=== PATIENT | female | born 1965 | race Caucasian/White ===

== ENCOUNTER 2017-08-03 10:04 | Emergency (ER) | payer OTHER ==
--- NOTE | 2017-08-03 10:42 | ED Physician Chart ---
ED Chief Complaint/HPI - Patient Information Date Seen:: 08/03/17 Time Seen:: 10:37 Chief Complaint:: Weakness History of Present Illness:: 52 yo female had weakness and SOB for 1 week. She also had anxiety due to pending surgery for left ear basal cell carcinoma. She felt fever, loss of appetite and vomited once. Allergies:: Allergies Allergy/AdvReac Type Severity Reaction Status Date / Time No Known Allergies Allergy Verified 08/03/17 10:20 Vitals:: Vital Signs - 8 hr 08/03/17 10:21 Temp 99.0 F HR 93 RR 22 BP 139/89 O2 Sat % 100 ED Review of Systems - Review of Systems General/Constitutional: Fever Skin: Skin lesions Head: Light headed Eyes: No pain ENT: No nasal drainage Neck: No neck pain Cardio Vascular: No chest pain Pulmonary: SOB GI: Nausea, Vomiting, No diarrhea Musculoskeletal: No bone or joint pain Psychiatric: Anxiety Neurological: No focal symptoms ED Past Medical History - Past Medical History Past Medical History: Other (, basal cell carcinoma of left ear) Social History: Non Smoker, No Alcohol, No Drug Use Surgical History: Hysterectomy ED Physical Exam - Physical Examination General/Constitutional: Awake, Alert Head: Atraumatic Eyes: PERRL Other Skin comments:: Left ear basal cell carcinoma ENMT: Nasal exam nl Neck: No nuchal rigidity Respiratory: Clear to Auscultation Cardio Vascular: RRR, No murmur, gallop, rubs, NL S1 S2 GI: No tenderness/rebounding/guarding Extremities: normal strength in all extremities Neuro/Psych: No focal deficits ED Labs/Radiology/EKG Results - Lab Results Results: Laboratory Last Values WBC 7.1 Th/cmm (4.8-10.8) 08/03/17 11:04 RBC 4.79 Mil/cmm (3.80-5.10) 08/03/17 11:04 Hgb 14.6 gm/dL (12-16) 08/03/17 11:04 Hct 43.4 % (41.0-60) 08/03/17 11:04 MCV 90.7 fl (81-100) 08/03/17 11:04 MCH 30.6 pg (27.0-31.0) 08/03/17 11:04 MCHC Differential 33.7 pg (28.0-36.0) 08/03/17 11:04 RDW 12.2 % (11.5-20.0) 08/03/17 11:04 Plt Count 241 Th/cmm (150-400) 08/03/17 11:04 MPV 9.7 fl 08/03/17 11:04 Neutrophils % 63.1 % (40.0-80.0) 08/03/17 11:04 Lymphocytes % 28.7 % (20.0-50.0) 08/03/17 11:04 Monocytes % 5.9 % (2.0-10.0) 08/03/17 11:04 Eosinophils % 1.1 % (0.0-5.0) 08/03/17 11:04 Basophils % 1.2 % (0.0-2.0) 08/03/17 11:04 Sodium 137 mEq/L (136-145) 08/03/17 11:04 Potassium 4.1 mEq/L (3.5-5.1) 08/03/17 11:04 Chloride 103 mEq/L (98-107) 08/03/17 11:04 Carbon Dioxide 26.2 mEq/L (21.0-31.0) 08/03/17 11:04 Anion Gap 11.9 (7.0-16.0) 08/03/17 11:04 BUN 11 mg/dL (7-25) 08/03/17 11:04 Creatinine 0.6 mg/dL (0.6-1.2) 08/03/17 11:04 Est GFR ( Amer) > 60.0 ml/min (>90) 08/03/17 11:04 Est GFR (Non-Af Amer) > 60.0 ml/min 08/03/17 11:04 BUN/Creatinine Ratio 18.3 08/03/17 11:04 Glucose 101 mg/dL (70-105) 08/03/17 11:04 Calcium 9.9 mg/dL (8.6-10.3) 08/03/17 11:04 Total Bilirubin 0.6 mg/dL (0.3-1.0) 08/03/17 11:04 AST 14 U/L (13-39) 08/03/17 11:04 ALT 13 U/L (7-52) 08/03/17 11:04 Alkaline Phosphatase 53 U/L (34-104) 08/03/17 11:04 Total Protein 7.5 gm/dL (6.0-8.3) 08/03/17 11:04 Albumin 4.8 gm/dL (3.7-5.3) 08/03/17 11:04 Globulin 2.7 gm/dL 08/03/17 11:04 Albumin/Globulin Ratio 1.8 (1.0-1.8) 08/03/17 11:04 TSH 0.80 uIU/ml (0.34-5.60) 08/03/17 11:04 Urine Source RANDOM 08/03/17 12:50 Urine Color YELLOW 08/03/17 12:50 Urine Clarity CLEAR (CLEAR) 08/03/17 12:50 Urine pH 7.0 (4.6 - 8.0) 08/03/17 12:50 Ur Specific [place] 1.010 (1.005-1.030) 08/03/17 12:50 Urine Protein NEGATIVE mg/dL (NEGATIVE) 08/03/17 12:50 Urine Glucose (UA) NEGATIVE mg/dL (NEGATIVE) 08/03/17 12:50 Urine Ketones NEGATIVE mg/dL (NEGATIVE) 08/03/17 12:50 Urine Blood NEGATIVE (NEGATIVE) 08/03/17 12:50 Urine Nitrate NEGATIVE (NEGATIVE) 08/03/17 12:50 Urine Bilirubin NEGATIVE (NEGATIVE) 08/03/17 12:50 Urine Urobilinogen 0.2 E.U./dL (0.2 - 1.0) 08/03/17 12:50 Ur Leukocyte Esterase NEGATIVE (NEGATIVE) 08/03/17 12:50 Urine RBC NONE SEEN /hpf (0-5) 08/03/17 12:50 Urine WBC 0-2 /hpf (0-5) 08/03/17 12:50 Ur Epithelial Cells OCCASIONAL /lpf (FEW) 08/03/17 12:50 Urine Bacteria FEW /hpf (NONE SEEN) 08/03/17 12:50 - Radiology Results Results: CXR: no focal consolidation ED Assessment - Assessment General Assessment: Anxiety and panic attack Dehydration Left ear basal cell carcinoma Assessment/Comments:: CBC, CMP, UA CXR, EKG NS 2L IV bolus ED Septic Shock - . Is Septic Shock (SBP<90, OR Lactate>4 mmol\L) present?: No - <6hrs of presentation: Vital Signs: Vital Signs - 8 hr 08/03/17 10:21 Temp 99.0 F HR 93 RR 22 BP 139/89 O2 Sat % 100 ED Reassessment (Disposition) - Reassessment Reassessment Condition:: Improved - Patient Disposition Discharge/Transfer:: Home ED Discharge Plan - Patient Disposition Admit/Discharge/Transfer: PT DISCHARGED HOME Instructions: Anxiety and Panic Attacks, Weakness, Dehydration, Adult
[2017-08-03 11:12] LABS: % BASOPHILS 1.2 % (0.0-2.0); % EOSINOPHILS 1.1 % (0.0-5.0); % LYMPHOCYTES 28.7 % (20.0-50.0); % MONOCYTES 5.9 % (2.0-10.0); % NEUTROPHILS 63.1 % (40.0-80.0); BASOPHILE ABSOLUTE 0.1 Th/cumm (0-0.2); EOSINOPHILE ABSOLUTE 0.1 Th/cmm (0.1-0.4); HEMATOCRIT 43.4 % (41.0-60); HEMOGLOBIN 14.6 gm/dL (12-16); MEAN CELL VOLUME 90.7 fl (81-100); MEAN CORPUSCULAR HEMOGLOBIN 30.6 pg (27.0-31.0); MEAN CORPUSCULAR HGB CONC 33.7 pg (28.0-36.0); MEAN PLATELET VOLUME 9.7 fl; MONOCYTE ABSOLUTE 0.4 Th/cmm (0.3-1.0); NEUTROPHILE ABSOLUTE 4.5 Th/cmm (1.8-8.0); PLATELET COUNT 241 Th/cmm (150-400); RED BLOOD COUNT 4.79 Mil/cmm (3.80-5.10); RED CELL DISTRIBUTION WIDTH 12.2 % (11.5-20.0); WHITE BLOOD COUNT 7.1 Th/cmm (4.8-10.8)
[2017-08-03 11:27] LABS: ALB/GLOB RATIO 1.8 (1.0-1.8); ALBUMIN 4.8 gm/dL (3.7-5.3); ALKALINE PHOSPHATASE 53 U/L (34-104); ANION GAP 11.9 (7.0-16.0); BILIRUBIN,TOTAL 0.6 mg/dL (0.3-1.0); BUN - UREA NITROGEN 11 mg/dL (7-25); CALCIUM SERUM 9.9 mg/dL (8.6-10.3); CARBON DIOXIDE 26.2 mEq/L (21.0-31.0); CHLORIDE 103 mEq/L (98-107); CREATININE - SERUM 0.6 mg/dL (0.6-1.2); GFR AFRICAN-AMERICAN > 60.0 ml/min (>90); GFR NON AFRICAN-AMERICAN > 60.0 ml/min; GLUCOSE 101 mg/dL (70-105); POTASSIUM SERUM 4.1 mEq/L (3.5-5.1); SGOT 14 U/L (13-39); SGPT/ALT 13 U/L (7-52); SODIUM SERUM 137 mEq/L (136-145); TOTAL PROTEIN,SERUM 7.5 gm/dL (6.0-8.3)
--- NOTE | 2017-08-03 11:38 | Diagnostic Imaging Report ---
Portable chest x-ray Time: 1108 History: Shortness of breath Allowing for portable technique the heart size is normal. No focal pulmonary parenchymal processes. No hilar or mediastinal abnormalities. Impression: No acute abnormalities.
[2017-08-03] MEDS ORDERED: Sodium Chloride 0.9% 1,000 ML IV ONE ×2 (11:46→14:20)
[2017-08-03 12:55] LABS: URINE MICROSCOPIC INDICATED? YES; URINE SOURCE RANDOM
[2017-08-03 12:59] LABS: URINE BILIRUBIN NEGATIVE (NEGATIVE); URINE BLOOD NEGATIVE (NEGATIVE); URINE GLUCOSE (UA) NEGATIVE (NEGATIVE); URINE KETONE NEGATIVE (NEGATIVE); URINE LEUKOCYTE ESTERASE NEGATIVE (NEGATIVE); URINE NITRATE NEGATIVE (NEGATIVE); URINE PROTEIN NEGATIVE (NEGATIVE); URINE UROBILINOGEN 0.2 E.U./dL (0.2 - 1.0)
[2017-08-03 13:07] LABS: URINE CLARITY CLEAR (CLEAR); URINE COLOR YELLOW
[2017-08-03 13:08] LABS: URINE BACTERIA FEW /hpf (NONE SEEN); URINE EPITHELIAL CELLS OCCASIONAL /lpf (FEW); URINE RBC NONE SEEN /hpf (0-5); URINE WBC 0-2 /hpf (0-5)
== END 2017-08-03 16:00 | disposition home or self-care (01) ==
LOC: ER 10:04
DX: R53.1 Weakness (principal)
CPT/HCPCS: 36415-UA; 71045-TC; 80053-TC; 81001-TC; 84443-TC; 85025-TC; 93005; J7030